=== PATIENT | female | born 1990 | race Caucasian/White ===

== ENCOUNTER 2019-02-28 10:46 | Emergency (ER) | payer SELFPAY ==
[2019-02-28] MEDS ORDERED: OXYCODONE-ACETAMINOPHEN 5-325 MG TABLET PO ONE (12:37)
--- NOTE | 2019-02-28 13:25 | RADIOLOGY REPORT (SQ) ---
EXAM DESCRIPTION: ANKLE RIGHT COMPLETE COMPLETED DATE/TIME: 02/28/2019 1:11 pm REASON FOR STUDY: twisted ankle COMPARISON: None. NUMBER OF VIEWS: Three views. TECHNIQUE: AP, lateral, and oblique radiographic images acquired of the right ankle. LIMITATIONS: None. FINDINGS: MINERALIZATION: Normal. BONES: No definite acute fracture. Corticated ossific density inferior to the medial malleolus witho ut donor site. Mild osteophytosis at the lateral ankle. Trigonal process. JOINTS: No dislocation. SOFT TISSUES: Soft tissue swelling about the ankle, greatest laterally. OTHER: No other significant finding. IMPRESSION: Soft tissue swelling about the ankle, greatest laterally. Corticated ossific density in ferior to the medial malleolus without donor site, favored to be chronic. No definite acute bony abn ormality. TECHNICAL DOCUMENTATION: JOB ID: [id number] [employer]- All Rights Reserved Reading location - IP/workstation name: [email or web address]
--- NOTE | 2019-02-28 13:32 | ER Document Report ---
HPI - HPI Time Seen by Provider: 02/28/19 12:36 Pain Level: 3 Notes: Patient presents to the emergency department with complaints of right ankle pain. Patient reports she stepped into a hole and twisted her ankle yesterday. She states it is painful to bear weight. - REPRODUCTIVE LMP: 02/2019 Reproductive: DENIES: : Past Medical History - General Information source: Patient - Social History Smoking Status: Never Smoker Chew tobacco use (# tins/day): No Frequency of alcohol use: None Drug Abuse: None Family History: Reviewed & Not Pertinent Patient has suicidal ideation: No Patient has homicidal ideation: No - Medical History Medical History: Negative Surgical Hx: Negative - Immunizations Immunizations up to date: Yes Vertical Provider Document - CONSTITUTIONAL Notes: PHYSICAL EXAMINATION: GENERAL: Well-appearing, well-nourished and in no acute distress. HEAD: Atraumatic, normocephalic. EYES: Pupils equal round extraocular movements intact, conjunctiva are normal. ENT: Nares patent NECK: Normal range of motion LUNGS: No respiratory distress Musculoskeletal: Limited range of motion to right ankle, swelling and ecchymosis noted to lateral aspect of ankle, strong dorsalis pedis pulse, cap refill less than 3 seconds, normal sensation distally. NEUROLOGICAL: Normal speech. PSYCH: Normal mood, normal affect. SKIN: Warm, Dry, normal turgor, no rashes or lesions noted. - INFECTION CONTROL TRAVEL OUTSIDE OF THE [place] IN LAST 30 DAYS: No Course - Re-evaluation Re-evalutation: Ankle X-Ray 02/28/19 12:38 IMPRESSION: Soft tissue swelling about the ankle, greatest laterally. Corticated ossific density inferior to the medial malleolus without donor site, favored to be chronic. No definite acute bony abnormality. Ankle x-rays negative for any acute fractures. Patient will be placed in an ankle stirrup splint, crutches and she will follow-up with Ortho if not improving. Patient understands ED return precautions and is agreeable to this plan. - Vital Signs Vital signs: Temp Pulse Resp BP Pulse Ox 98.2 F 83 18 123/76 98 02/28/19 10:57 02/28/19 10:57 02/28/19 10:57 02/28/19 10:57 02/28/19 10:57 Procedures - Immobilization Right ankle Pre-Proc Neuro Vasc Exam: Normal Immobilizer type: Ankle stirrup, Crutches Performed by: PCT Post-Proc Neuro Vasc Exam: Normal Discharge - Discharge Clinical Impression: Ankle sprain Qualifiers: Encounter type: initial encounter Involved ligament of ankle: unspecified ligament Laterality: right Qualified Code(s): S93.401A - Sprain of unspecified ligament of right ankle, initial encounter Condition: Stable Disposition: HOME, SELF-CARE Additional Instructions: Your x-ray does not show any acute fracture. You have a sprained ankle. Keep the area elevated, apply ice 20 minutes every 2 hours, and use crutches as needed. You should take ibuprofen 600 mg every 6 hours as needed for pain. Please return if you have worsening pain and swelling, fever greater than 101, you notice spreading redness from the area, or have any other symptoms that are concerning to you. Please follow-up with orthopedic surgery if your symptoms have not improved in the next 2-3 weeks. Forms: Return to Work Referrals: MADAI DOBSON JR, DO [ACTIVE PROVISIONAL STAFF] - Follow up as needed
[2019-02-28 14:30] VITALS: BP 146/93
== END 2019-02-28 14:32 | disposition home or self-care (01) ==
LOC: ER 10:46
DX: S93.401A Sprain of unspecified ligament of right ankle, initial encounter (principal); X50.0XXA Overexertion from strenuous movement or load, initial encounter
CPT/HCPCS: 99283; 73610; L1902

== ENCOUNTER 2019-12-07 14:40 | Emergency (ER) | payer MEDICAID ==
--- NOTE | 2019-12-07 15:35 | ER Document Report ---
ED Medical Screen (RME) - General Chief Complaint: Vag Bleeding, +preg <12wks Stated Complaint: VAGINAL BLEEDING/ABDOMINAL PAIN Time Seen by Provider: 12/07/19 15:29 Mode of Arrival: Ambulatory Information source: Patient Notes: 29-year-old female presented to ED for complaint of pelvic cramping and vaginal bleeding. She states she is 12 weeks with twins. She states this started about 2 PM. She states she is cramping throughout her whole . She states she thinks she is O- blood type. She is 2 para 1 this is twins. Patient states she has an appointment next week but she is very concerned because she is having bleeding and cramping. I have ordered blood urine and OB ultrasound. I have informed patient please do not urinate before the ultrasound. I have greeted and performed a rapid initial assessment of this patient. A comprehensive ED assessment and evaluation of the patient, analysis of test results and completion of medical decision making process will be conducted by an additional ED providers. TRAVEL OUTSIDE OF THE [place] IN LAST 30 DAYS: No - Related Data Allergies/Adverse Reactions: No Known Allergies Allergy (Verified 02/28/19 12:36) Past Medical History - Immunizations Immunizations up to date: Yes Physical Exam - Vital signs Vitals: Temp Pulse Resp BP Pulse Ox 98.7 F 83 16 111/73 99 12/07/19 15:12 12/07/19 15:12 12/07/19 15:12 12/07/19 15:12 12/07/19 15:12 Course - Vital Signs Vital signs: Temp Pulse Resp BP Pulse Ox 98.7 F 83 16 111/73 99 12/07/19 15:12 12/07/19 15:12 12/07/19 15:12 12/07/19 15:12 12/07/19 15:12
[2019-12-07 16:27] LABS: APPEARANCE,URINE CLEAR; BILIRUBIN,URINE NEGATIVE (NEGATIVE); COLOR,URINE STRAW; GLUCOSE, URINE NEGATIVE (NEGATIVE); KETONES,URINE NEGATIVE (NEGATIVE); LEUKOCYTE ESTERASE,URINE NEGATIVE (NEGATIVE); NITRITE,URINE NEGATIVE (NEGATIVE); PROTEIN,URINE NEGATIVE (NEGATIVE); URINE SPECIFIC GRAVITY 1.004; UROBILINOGEN,URINE NEGATIVE mg/dL (<2.0)
--- NOTE | 2019-12-07 16:28 | RADIOLOGY REPORT (SQ) ---
EXAM DESCRIPTION: U/S [id number] TRNABD 1GES W/ODOP; U/S 07909 + EACH ADDIT GEST IMAGES COMPLETED DATE/TIME: 12/07/2019 4:03 pm REASON FOR STUDY: 12 weeks twins vaginal bleeding pelvic cr; TWINS COMPARISON: None. TECHNIQUE: Transabdominal static and realtime grayscale images acquired of the pelvis. Additional se lected spectral and color Doppler images recorded. All images stored on PACs. bHCG: Not available. CLINICAL DATES: 12 week 3 day LIMITATIONS: None. FINDINGS: Twin Intra-uterine gestation TYPE OF TWIN: Cannot accurately determine. TWIN A: ULTRASOUND EGA: 12 week 4 day ULTRASOUND NEGRITO: 06/17/2019 EFW: Not applicable. Under 20 weeks. CRL: 6.2 cm SURVEY: Too early to assess. FHR: 152 bpm. AMNIOTIC FLUID: Adequate amount. PLACENTA: Anterior. SUBCHORIONIC BLEED: No. SIZE OF BLEED: Not applicable. TWIN B: ULTRASOUND EGA: 12 week 6 day ULTRASOUND NEGRITO: 06/15/2019 EFW: Not applicable. Under 20 weeks. CRL: 6.5 cm SURVEY: Too early to assess. FHR: 141 bpm. AMNIOTIC FLUID: Adequate amount. SUBCHORIONIC BLEED: No. SIZE OF BLEED: Not applicable. UTERUS: No masses. No anomalies. CERVICAL LENGTH: 3.0 cm. Closed. RIGHT ADNEXA: Ovary not identified due to poor acoustical window No adnexal free fluid. No adnexal masses. LEFT ADNEXA: Ovary not identified due to poor acoustical window No adnexal free fluid. No adnexal masses. FREE FLUID: None. OTHER: No other significant finding. IMPRESSION: LIVING TWIN INTRAUTERINE TWIN A EGA: 12 week 4 day TWIN B EGA: 12 week 6 day Trimester of : First trimester - 0 to 13 weeks. TECHNICAL DOCUMENTATION: JOB ID: [id number] 2010 [employer]- All Rights Reserved rev Reading location - IP/workstation name: [email or web address]
--- NOTE | 2019-12-07 16:28 | RADIOLOGY REPORT (SQ) ---
EXAM DESCRIPTION: U/S [id number] TRNABD 1GES W/ODOP; U/S 35799 + EACH ADDIT GEST IMAGES COMPLETED DATE/TIME: 12/07/2019 4:03 pm REASON FOR STUDY: 12 weeks twins vaginal bleeding pelvic cr; TWINS COMPARISON: None. TECHNIQUE: Transabdominal static and realtime grayscale images acquired of the pelvis. Additional se lected spectral and color Doppler images recorded. All images stored on PACs. bHCG: Not available. CLINICAL DATES: 12 week 3 day LIMITATIONS: None. FINDINGS: Twin Intra-uterine gestation TYPE OF TWIN: Cannot accurately determine. TWIN A: ULTRASOUND EGA: 12 week 4 day ULTRASOUND NEGRITO: 06/17/2019 EFW: Not applicable. Under 20 weeks. CRL: 6.2 cm SURVEY: Too early to assess. FHR: 152 bpm. AMNIOTIC FLUID: Adequate amount. PLACENTA: Anterior. SUBCHORIONIC BLEED: No. SIZE OF BLEED: Not applicable. TWIN B: ULTRASOUND EGA: 12 week 6 day ULTRASOUND NEGRITO: 06/15/2019 EFW: Not applicable. Under 20 weeks. CRL: 6.5 cm SURVEY: Too early to assess. FHR: 141 bpm. AMNIOTIC FLUID: Adequate amount. SUBCHORIONIC BLEED: No. SIZE OF BLEED: Not applicable. UTERUS: No masses. No anomalies. CERVICAL LENGTH: 3.0 cm. Closed. RIGHT ADNEXA: Ovary not identified due to poor acoustical window No adnexal free fluid. No adnexal masses. LEFT ADNEXA: Ovary not identified due to poor acoustical window No adnexal free fluid. No adnexal masses. FREE FLUID: None. OTHER: No other significant finding. IMPRESSION: LIVING TWIN INTRAUTERINE TWIN A EGA: 12 week 4 day TWIN B EGA: 12 week 6 day Trimester of : First trimester - 0 to 13 weeks. TECHNICAL DOCUMENTATION: JOB ID: [id number] 2010 [employer]- All Rights Reserved rev Reading location - IP/workstation name: [email or web address]
[2019-12-07 16:30] LABS: ABSOLUTE EOSINOPHILS # (AUTO) 0.1 10^3/uL (0.0-0.6); ABSOLUTE LYMPHOCYTES (AUTO) 1.7 10^3/uL (0.5-4.7); ABSOLUTE MONOCYTES (AUTO) 0.5 10^3/uL (0.1-1.4); ABSOLUTE NEUT (AUTO) 6.8 10^3/uL (1.7-8.2); BASOPHILS % (AUTO) 0.1 % (0-2); EOSINOPHILS % (AUTO) 0.7 % (0-6); HEMATOCRIT 37.5 % (36.0-47.0); HEMOGLOBIN 13.3 g/dL (12.0-15.5); LYMPHOCYTES % (AUTO) 18.1 % (13-45); MEAN CORPUSCULAR HEMOGLOBIN 30.5 pg (27.0-33.4); MEAN CORPUSCULAR HGB CONC 35.4 g/dL (32.0-36.0); MEAN CORPUSCULAR VOLUME 86 fl (80-97); MONOCYTES % (AUTO) 5.9 % (3-13); PLATELET COUNT 191 10^3/uL (150-450); RED BLOOD COUNT 4.34 10^6/uL (3.72-5.28); RED CELL DISTRIBUTION WIDTH 13.2 % (11.5-14.0); SEGMENTED NEUTROPHILS % (AUTO) 75.2 % (42-78); TOTAL CELLS COUNTED % (AUTO) 100 %; WHITE BLOOD COUNT 9.1 10^3/uL (4.0-10.5)
[2019-12-07 16:34] LABS: ALBUMIN 3.8 g/dL (3.5-5.0); ALKALINE PHOSPHATASE 45 U/L (38-126); ANION GAP 10 (5-19); ASPARTATE AMINO TRANSFERASE 20 U/L (14-36); BILIRUBIN,DIRECT 0.2 mg/dL (0.0-0.4); BILIRUBIN,TOTAL 0.4 mg/dL (0.2-1.3); BLOOD UREA NITROGEN 7 mg/dL (7-20); CALCIUM 9.6 mg/dL (8.4-10.2); CARBON DIOXIDE 22 mmol/L (22-30); CHLORIDE 104 mmol/L (98-107); GLUCOSE 86 mg/dL (75-110); TOTAL PROTEIN 6.2 g/dL (6.3-8.2)
--- NOTE | 2019-12-07 17:15 | ER Document Report ---
ED General - General Chief Complaint: Vaginal Bleeding Stated Complaint: VAGINAL BLEEDING/ABDOMINAL PAIN Time Seen by Provider: 12/07/19 15:29 Mode of Arrival: Ambulatory TRAVEL OUTSIDE OF THE [place] IN LAST 30 DAYS: No - HPI Notes: This is a very pleasant 29-year-old female who presents to the emergency department for evaluation of vaginal bleeding during . She is just over 12 weeks with a twin gestation, this is her second . She has a healthy child from her first. She states that she went to the bathroom earlier today at work. She noticed bright red blood on the toilet paper. She has not required menstrual pad. She has urinated since then and has not seen any further blood. She is been having cramping throughout the , was reassured by OB that that was normal. She actually has an appointment with M on Monday. No fevers or chills. She has had a diminished appetite, but again that is not new. - Related Data Allergies/Adverse Reactions: No Known Allergies Allergy (Verified 02/28/19 12:36) Home Medications: vitamin Past Medical History - General Information source: Patient - Social History Smoking Status: Never Smoker Frequency of alcohol use: None Drug Abuse: None Family History: None, Reviewed & Not Pertinent - Past Medical History Cardiac Medical History: Denies: Hx Hypertension Pulmonary Medical History: Denies: Hx COPD Neurological Medical History: Denies: Hx Cerebrovascular Accident, Hx Seizures Malignancy Medical History: Reports: None - Immunizations Immunizations up to date: Yes Review of Systems - Review of Systems Constitutional: No symptoms reported EENT: No symptoms reported Cardiovascular: No symptoms reported Respiratory: No symptoms reported Gastrointestinal: No symptoms reported Genitourinary: No symptoms reported Female Genitourinary: See HPI Musculoskeletal: No symptoms reported Skin: No symptoms reported Neurological/Psychological: No symptoms reported Physical Exam - Vital signs Vitals: Temp Pulse Resp BP Pulse Ox 98.7 F 83 16 111/73 99 12/07/19 15:12 12/07/19 15:12 12/07/19 15:12 12/07/19 15:12 12/07/19 15:12 - Notes Notes: Vital signs reviewed, please refer to chart. Head is normocephalic, atraumatic. Pupils equal round, reactive to light. Neck is supple without meningismus. Heart is regular rate and rhythm. Lungs are clear to auscultation bilaterally. Abdomen is soft, nontender, normoactive bowel sounds throughout. Extremities without cyanosis, clubbing. Posterior calves are nontender. Peripheral pulses are equal. Skin is warm and dry. Patient is awake, alert, neurological exam is nonfocal. Course - Re-evaluation Re-evalutation: 12/07/19 17:14 Patient presents to the emergency department for evaluation. Laboratory investigations and imaging were ordered as through triage. Patient unsure of her Rh status. Otherwise the ultrasound is unremarkable, patient has not continued to bleed. We will continue to monitor. 12/07/19 17:41 Patient's Rh status is positive, she does not require RhoGam. The only pending labs are her quantitative beta-hCG, and at this point it is inconsequential. Patient is no longer bleeding. She is told to follow pelvic rest instructions. She has an appointment with MFM on Monday. She is to return to the ER with worsening or new concerning symptoms of any sort. - Vital Signs Vital signs: Temp Pulse Resp BP Pulse Ox 98.7 F 83 16 111/73 99 12/07/19 15:12 12/07/19 15:12 12/07/19 15:12 12/07/19 15:12 12/07/19 15:12 - Laboratory Result Diagrams: 12/07/19 15:55 12/07/19 15:55 Laboratory results interpreted by me: 12/07/19 15:55 Sodium 136.1 L Total Protein 6.2 L - Diagnostic Test Radiology reviewed: Image reviewed, Reports reviewed Radiology results interpreted by me: 12/07/19 17:15 Obstetrics Ultrasound 12/07/19 00:00 IMPRESSION: LIVING TWIN INTRAUTERINE TWIN A EGA: 12 week 4 day TWIN B EGA: 12 week 6 day Trimester of : First trimester - 0 to 13 weeks. Obstetrics Ultrasound 12/07/19 15:33 IMPRESSION: LIVING TWIN INTRAUTERINE TWIN A EGA: 12 week 4 day TWIN B EGA: 12 week 6 day Trimester of : First trimester - 0 to 13 weeks. Discharge - Discharge Clinical Impression: Vaginal bleeding during Condition: Stable Disposition: HOME, SELF-CARE Instructions: Bleeding During Early ([facility]) Additional Instructions: Pelvic rest as discussed. Follow-up with OB on Monday as scheduled. If you develop bleeding that gets heavier than 1-2 pads an hour, increased pain, fevers, or any other new or concerning symptoms, please return immediately to the emergency department for evaluation.
[2019-12-07 18:09] VITALS: BP 116/69
== END 2019-12-07 18:06 | disposition home or self-care (01) ==
LOC: ER 14:40
DX: O20.9 Hemorrhage in early pregnancy, unspecified (principal); O30.001 Twin pregnancy, unspecified number of placenta and unspecified number of amniotic sacs, first trimester; O26.891 Other specified pregnancy related conditions, first trimester; R25.2 Cramp and spasm; R63.0 Anorexia; Z79.899 Other long term (current) drug therapy; Z67.90 Unspecified blood type, Rh positive; Z3A.12 12 weeks gestation of pregnancy
CPT/HCPCS: 36415; 76801; 76802; 80053; 81001; 84702; 85025; 86900; 86901; 99284